=== PATIENT | male | born 1985 | race Two or more races ===

== ENCOUNTER 2016-09-26 21:47 | Inpatient (IN) | payer OTHER ==
[~2016-09-26] VITALS: Ht 167.6 cm; Wt 83.6 kg
[2016-09-27 00:29] LABS: HEMATOCRIT 38.1 % (38.0-50.0); MCH 28.2 PG (29.0-34.0); MCHC 33.9 G/DL (30.0-36.0); MCV 83.4 FL (86-99); PLATELET COUNT 275 K/uL (156-360); RBC DIS.WIDTH-CV 12.3 % (11.8-14.6); RBC DIS.WIDTH-SD 37.6 % (39-53); RED BLOOD COUNT 4.57 M/uL (4.00-5.50); WHITE BLOOD COUNT 13.7 K/uL (4.1-10.2)
[2016-09-27 00:45] LABS: CHLORIDE 107 mEq/L (99-109); POTASSIUM 3.8 mEq/L (3.7-5.4); SODIUM 139 mEq/L (136-147)
[2016-09-27 00:47] LABS: GLUCOSE 122 mg/dL (70-99)
[2016-09-27 00:48] LABS: ANION GAP 11 MEQ/L (2-14)
[2016-09-27 00:49] LABS: TOTAL BILIRUBIN 0.4 mg/dL (0.0-1.0)
[2016-09-27 00:50] LABS: ALKALINE PHOSPHATASE 91 IU/L (3-129)
[2016-09-27 00:51] LABS: GFR ESTIMATE (CALCULATED) 20 mL/min/
[2016-09-27 00:52] LABS: UREA NITROGEN (BUN) 34 mg/dL (9-23)
[2016-09-27 01:04] LABS: ADD MIUA? NO; BILIRUBIN NEGATIVE; BLOOD NEGATIVE; COLOR STRAW ((YELLOW)); GLUCOSE (STRIP) NEGATIVE; KETONES NEGATIVE; LEUKOCYTES NEGATIVE; NITRITE NEGATIVE; PROTEIN (STRIP) NEGATIVE; SPECIFIC GRAVITY 1.004 (1.000-1.030); UCUL ADDED? NO; UROBILINOGEN 0.2 MG/DL (0.2-1.0)
[2016-09-27 01:13] LABS: INFLUENZA A VIRAL ANTIGEN NEGATIVE; INFLUENZA B VIRAL ANTIGEN NEGATIVE
[2016-09-27 01:27] LABS: CREATINE KINASE 211 IU/L (1-294)
[2016-09-27 03:58] LABS: C3 COMPLEMENT 159 MG/DL (58-170); C4 COMPLEMENT 54 MG/DL (10-40)
[2016-09-27 08:48] LABS: CHLORIDE 108 mEq/L (99-109); POTASSIUM 3.7 mEq/L (3.7-5.4); SODIUM 139 mEq/L (136-147)
[2016-09-27 08:50] LABS: GLUCOSE 115 mg/dL (70-99)
[2016-09-27 08:52] LABS: ANION GAP 9 MEQ/L (2-14); TOTAL BILIRUBIN 0.4 mg/dL (0.0-1.0)
[2016-09-27 08:54] LABS: ALKALINE PHOSPHATASE 89 IU/L (3-129); GFR ESTIMATE (CALCULATED) 20 mL/min/
[2016-09-27 08:55] LABS: UREA NITROGEN (BUN) 33 mg/dL (9-23)
[2016-09-27 12:20] VITALS: BP 144/80
[2016-09-27 15:15] VITALS: BP 164/72
[2016-09-27 15:36] LABS: CREATINE KINASE 198 IU/L (1-294); TOTAL CK 198 IU/L (1-294)
[2016-09-27 18:38] LABS: AMPHETAMINES QUANT VALUE 0 NG/ML; BARBITUATES QUANT VALUE 0 NG/ML; BENZODIAZEPINES QUANT VALUE 0 NG/ML; BENZODIAZEPINES, URINE SCREEN Negative (200 ng/mL); MARIJUANA QUANT VALUE 0 NG/ML; OPIATES QUANTITATIVE VALUE 0 NG/ML; PHENCYCLIDINE QUANT VALUE 0 NG/ML
[2016-09-27 19:20] LABS: CK-MB 0.9 ng/mL (0.0-4.9)
[2016-09-27 20:00] VITALS: BP 168/86
[2016-09-27 22:56] VITALS: BP 154/72
[2016-09-28 04:51] VITALS: BP 154/82
[2016-09-28 06:45] VITALS: BP 162/72
[2016-09-28 07:02] LABS: EOSINOPHIL (%) 1.9 % (0-5); EOSINOPHIL COUNT 0.2 K/uL (0-0.3); HEMATOCRIT 35.2 % (38.0-50.0); IMMATURE GRANULOCYTE (%) 0.4 % (0.0-0.7); IMMATURE GRANULOCYTE COUNT 0.1 K/uL; LYMPHOCYTE COUNT 2.3 K/uL (1.0-2.8); MCH 29.3 PG (29.0-34.0); MCHC 34.7 G/DL (30.0-36.0); MCV 84.6 FL (86-99); MEAN PLAT.VOLUME 9.1 uM^3 (9.0-12.4); MONOCYTE COUNT 1.2 K/uL (0-0.8); NEUTROPHIL (%) 67.9 % (45-76); PLATELET COUNT 311 K/uL (156-360); RBC DIS.WIDTH-CV 12.9 % (11.8-14.6); RBC DIS.WIDTH-SD 39.5 % (39-53); RED BLOOD COUNT 4.16 M/uL (4.00-5.50); WHITE BLOOD COUNT 11.8 K/uL (4.1-10.2)
[2016-09-28 07:22] LABS: ANION GAP 12 MEQ/L (2-14); CHLORIDE 108 MEQ/L (99-109); GFR ESTIMATE (CALCULATED) 21 mL/min/; POTASSIUM 3.7 MEQ/L (3.7-5.4); SAMPLE HEMOLYSIS CHECK 0; SAMPLE ICTERIC CHECK 0; SAMPLE LIPEMIA CHECK 0; SODIUM 140 MEQ/L (136-147); UREA NITROGEN (BUN) 26 mg/dL (9-23)
[2016-09-28 07:23] LABS: GLUCOSE 79 mg/dL (70-99)
[2016-09-28 07:48] LABS: Estimated Average Glucose 137 mg/dL (70-123); HEMOGLOBIN A1c (GLYCOHEMOGLOB) 6.4 % HGB (Below 5.7)
[2016-09-28 10:31] LABS: HBSG INDEX 0.23; HPCA INDEX 0.11
[2016-09-28 10:33] LABS: ANTI-HEPATITIS A VIRUS (IGM) Nonreactive; ANTI-HEPATITIS B CORE (IGM) Nonreactive; HAV INDEX 0.15; HBC IgM INDEX 0.09; HIV-1/2 AB/AG COMBO Nonreactive
[2016-09-28 11:05] LABS: TREPONEMA ANTIBODY NEGATIVE (NEGATIVE)
[2016-09-28 11:32] VITALS: BP 134/76
[2016-09-28 13:38] LABS: CHLAMYDIA TRACHOMATIS NEGATIVE; NEISSERIA GONORRHOEAE NEGATIVE
[2016-09-28 15:54] VITALS: BP 162/72
[2016-09-28 19:37] VITALS: BP 168/78
[2016-09-29 00:02] VITALS: BP 152/73
[2016-09-29 04:20] VITALS: BP 156/82
[2016-09-29 07:00] VITALS: BP 138/92
[2016-09-29 07:05] LABS: BASOPHIL COUNT 0.1 K/uL (0-0.1); EOSINOPHIL (%) 2.2 % (0-5); EOSINOPHIL COUNT 0.2 K/uL (0-0.3); HEMATOCRIT 35.2 % (38.0-50.0); IMMATURE GRANULOCYTE (%) 0.5 % (0.0-0.7); IMMATURE GRANULOCYTE COUNT 0.1 K/uL; INSTRUMENT ABS NEUTROPHIL CT 7.5 K/uL; MCH 28.1 PG (29.0-34.0); MCHC 33.2 G/DL (30.0-36.0); MCV 84.6 FL (86-99); MEAN PLAT.VOLUME 8.8 uM^3 (9.0-12.4); MONOCYTE (%) 10.2 % (3-12); MONOCYTE COUNT 1.1 K/uL (0-0.8); NEUTROPHIL (%) 68.1 % (45-76); NEUTROPHIL COUNT 7.5 K/uL (1.8-6.4); PLATELET COUNT 325 K/uL (156-360); RBC DIS.WIDTH-CV 12.9 % (11.8-14.6); RBC DIS.WIDTH-SD 39.8 % (39-53); RED BLOOD COUNT 4.16 M/uL (4.00-5.50); WHITE BLOOD COUNT 10.9 K/uL (4.1-10.2)
[2016-09-29 07:27] LABS: ANION GAP 11 MEQ/L (2-14); CHLORIDE 108 MEQ/L (99-109); GFR ESTIMATE (CALCULATED) 23 mL/min/; GLUCOSE 87 mg/dL (70-99); POTASSIUM 3.8 MEQ/L (3.7-5.4); SAMPLE HEMOLYSIS CHECK 0; SAMPLE ICTERIC CHECK 0; SAMPLE LIPEMIA CHECK 0; SODIUM 139 MEQ/L (136-147); UREA NITROGEN (BUN) 25 mg/dL (9-23)
[2016-09-29 10:30] VITALS: BP 158/93
[2016-09-29] MEDS ORDERED: INDOMETHACIN50 MG PO (12:10)
[2016-09-29 16:20] VITALS: BP 160/98
[2016-09-29 23:46] VITALS: BP 136/74
[2016-09-30 03:33] VITALS: BP 140/86
[2016-09-30 06:47] LABS: ANION GAP 12 MEQ/L (2-14); CHLORIDE 105 MEQ/L (99-109); GFR ESTIMATE (CALCULATED) 25 mL/min/; GLUCOSE 88 mg/dL (70-99); SAMPLE HEMOLYSIS CHECK 0; SAMPLE ICTERIC CHECK 0; SAMPLE LIPEMIA CHECK 0; SODIUM 141 MEQ/L (136-147); UREA NITROGEN (BUN) 28 mg/dL (9-23)
[2016-09-30 06:48] LABS: POTASSIUM 4.6 MEQ/L (3.7-5.4)
[2016-09-30 07:00] VITALS: BP 170/92
[2016-09-30] MEDS ORDERED: NORVASC10 MG PO (10:30)
[2016-09-30] MEDS ORDERED: PREDNISONE10 MG PO (10:30)
[2016-09-30] MEDS ORDERED: ACETAMINOPHEN-1 EAC1 PO (10:30)
[2016-09-30] MEDS ORDERED: BENZONATATE100 MG PO (10:30)
[2016-09-30 22:20] LABS: Neutrophil Cytoplasmic Aby Negative (Negative)
[2016-10-03 09:53] LABS: HIV RNA QUANT LOG10 RESULT < 1.30 Log(10) (<1.30); HIV RNA QUANT VIRAL LOAD < 20 copy/mL (<20)
== END 2016-09-30 12:27 | disposition home or self-care (01) | DRG 683 ==
LOC: EME 21:47 → EDOF 09-27 02:52 → 2EAST 09-27 02:52 → EDOF 09-27 05:04 → 2EAST 09-27 12:12
PROVIDERS: Hospitalist; Internal Medicine; Internal Medicine Nephrology; Physician Assistant
DX: N17.0 Acute kidney failure with tubular necrosis (principal); T39.395A Adverse effect of other nonsteroidal anti-inflammatory drugs [NSAID], initial encounter; B30.9 Viral conjunctivitis, unspecified; M25.50 Pain in unspecified joint; I10 Essential (primary) hypertension; E86.0 Dehydration; M02.30 Reiter's disease, unspecified site; Z72.0 Tobacco use; Z68.29 Body mass index [BMI] 29.0-29.9, adult
CPT/HCPCS: 71010; 71020; 74176; 76770; 80048; 80053; 80074; 80306 90; 81003; 82550; 82550 91; 82553; 82570; 83036; 83605; 84156; 85025; 85027; 86021 90; 86038; 86160; 86703; 86780; 87040; 87491; 87502; 87536; 87591; 87651 90; 89190; 99281; 99285; J1644; J2405; J7030; J7512; S0028